=== PATIENT | female | born 1950 | race Asian ===

== ENCOUNTER 2018-08-24 11:26 | Day surgery (SDC) | payer MEDICARE, MEDICAID ==
[2018-08-24] MEDS: SOD CHLORIDE 0.9% 1,000 ML IV (12:27)
[2018-08-24] MEDS: CEFAZOLIN 2 GM/50 ML (PMX) 50 ML IVPB (12:56)
[2018-08-24] MEDS ORDERED: MIDAZOLAM 1 MG/ML 2 ML INJ (12:58)
[2018-08-24] MEDS: BUPIVACAINE 0.25% (MPF) 30 ML INJ (13:03)
[2018-08-24] MEDS ORDERED: CEFAZOLIN 1 GM INJ (13:24)
[2018-08-24] MEDS ORDERED: ETOMIDATE 20 MG INJ (13:24)
[2018-08-24] MEDS ORDERED: ONDANSETRON 4 MG INJ (13:24)
[2018-08-24] MEDS ORDERED: LIDOCAINE 2% (SDV) 5 ML INJ (13:24)
[2018-08-24] MEDS ORDERED: HYDROCODONE/APAP (5/325) TAB PO (13:30)
[2018-08-24] MEDS ORDERED: ONDANSETRON 4 MG INJ IV (14:00)
[2018-08-24] MEDS ORDERED: DIPHENHYDRAMINE 50 MG INJ IV (14:00)
[2018-08-24] MEDS ORDERED: LABETALOL HCL 20MG INJ IV (14:00)
[2018-08-24] MEDS ORDERED: METOCLOPRAMIDE 10 MG INJ IV (14:00)
[2018-08-24] MEDS ORDERED: MEPERIDINE 25 MG INJ IV (14:00)
[2018-08-24] MEDS ORDERED: OXYCODONE/ACETAMINOPHEN (5/325) TAB PO (14:00)
[2018-08-24] MEDS ORDERED: FENTAnyl 50 MCG/ML VIAL IV (14:00)
== END 2018-08-24 15:25 | disposition home or self-care (01) ==
LOC: SDS 11:26
DX: L72.0 Epidermal cyst (principal); I10 Essential (primary) hypertension; E78.5 Hyperlipidemia, unspecified
CPT/HCPCS: 14020; 88307